=== PATIENT | male | born 1965 | race Caucasian/White ===

== ENCOUNTER 2022-03-11 06:16 | Day surgery (SDC) | payer OTHER ==
[~2022-03-11] VITALS: Ht 165.1 cm; Wt 100.7 kg
[2022-03-11] MEDS ORDERED: fentaNYL citrate 0.05 MG/ML VIAL ONE (07:21)
[2022-03-11] MEDS ORDERED: LIDOCAINE 2% 100 MG/5 ML UJET TP ONE (07:21)
[2022-03-11] MEDS ORDERED: fentaNYL citrate 0.05 MG/ML VIAL IVP ONE (08:20)
== END 2022-03-11 08:30 | disposition home or self-care (01) ==
LOC: MDS 06:16 → MMU 06:17 → MDS 08:30
PROVIDERS: ATTEND Internal Medicine Gastroenterology
DX: Z12.11 Encounter for screening for malignant neoplasm of colon (principal); D12.5 Benign neoplasm of sigmoid colon; R19.5 Other fecal abnormalities; I10 Essential (primary) hypertension; Z79.899 Other long term (current) drug therapy
CPT/HCPCS: 45385; J3010